=== PATIENT | male | born 1985 | race Caucasian/White ===

== ENCOUNTER 2020-10-11 00:35 | Inpatient (IN) | payer OTHER ==
[~2020-10-11] VITALS: Ht 190.5 cm; Wt 135.2 kg
[2020-10-11 01:10] LABS: BASOPHILS % (AUTO) 0.1 % (0.0-5.0); LYMPHOCYTES % (AUTO) 3.1 % (21.0-51.0); MEAN CORPUSCULAR HEMOGLOBIN 30.3 pg (27.0-33.0); MEAN CORPUSCULAR HGB CONC 33.6 g/dL (32.0-36.0); MEAN CORPUSCULAR VOLUME 90.2 fL (79-99); MONOCYTES % (AUTO) 5.9 % (3.0-13.0); NEUTROPHILS % (AUTO) 90.4 % (40.0-77.0); PLATELET COUNT (AUTO) 174 K/uL (130-400); RED BLOOD CELL COUNT(AUTO) 2.44 MIL/uL (4.50-6.20); RED CELL DISTRIBUTION WIDTH 11.9 % (11.0-15.5); WHITE BLOOD COUNT (AUTO) 18.7 K/uL (4.8-10.8)
[2020-10-11 01:34] LABS: BILIRUBIN,TOTAL 0.8 mg/dL (0.2-1.0); CREATININE 7.5 mg/dL (0.5-1.5); POTASSIUM 4.7 mmol/L (3.5-5.1); TOTAL PROTEIN, SERUM 6.6 g/dL (6.0-8.3)
[2020-10-11] MEDS ORDERED: AZITHROMYCIN 500MG+NS 250ML 250 ML IV SCH (04:00)
[2020-10-11] MEDS ORDERED: CEFTRIAXONE SODIUM 1 GM IVP SCH (04:00)
[2020-10-11] MEDS ORDERED: ACETAMINOPHEN 325 MG TAB PO PRN ×2 (04:00)
[2020-10-11] MEDS ORDERED: ONDANSETRON HCL 4 MG/2 ML VIAL IV PRN (04:00)
[2020-10-11] MEDS ORDERED: AZITHROMYCIN 500MG+NS 250ML 250 ML IV ONE (04:55)
[2020-10-11] MEDS ORDERED: CEFTRIAXONE SODIUM 1 GM ONE ×2 (04:55→19:00)
[2020-10-11] MEDS ORDERED: GLUCAGON 1MG KIT 1 MG ML IM PRN (05:15)
[2020-10-11] MEDS ORDERED: DEXTROSE 50%-WATER 50 ML DISP.SYRIN IV PRN (05:15)
[2020-10-11] MEDS ORDERED: INSULIN HUMULIN R 100 UNIT/ML 3ML SQ SCH (06:00)
[2020-10-11] MEDS ORDERED: FAMOTIDINE/PF 20 MG/2 ML VIAL IV SCH (09:00)
[2020-10-11 09:42] LABS: INR 1.63 (0.85-1.15); PROTHROMBIN TIME 16.7 SEC (9.6-11.6)
[2020-10-11] MEDS ORDERED: ALBUTEROL INHALER 90MCG/INH IH PRN (10:15)
[2020-10-11] MEDS ORDERED: FAMOTIDINE/PF 20 MG/2 ML VIAL IV ONE (10:26)
[2020-10-11] MEDS ORDERED: HEPARIN SODIUM 5000UNIT/ML 1ML VIAL SQ SCH (11:15)
[2020-10-11] MEDS ORDERED: HEPARIN SODIUM 5000UNIT/ML 1ML VIAL ONE (12:13)
[2020-10-11] MEDS ORDERED: FUROSEMIDE 10 MG/ML 4ML VIAL ONE (13:27)
[2020-10-11 14:05] LABS: APPEARANCE,URINE Turbid (CLEAR); BILIRUBIN,URINE Negative (NEGATIVE); COLOR,URINE Yellow (YELLOW); GLUCOSE, URINE (UA) 250 mg/dL (NEGATIVE); KETONES,URINE Negative (NEGATIVE); LEUKOCYTE ESTERASE ,URINE Negative (NEGATIVE); NITRATE,URINE Negative (NEGATIVE); OCCULT BLOOD,URINE Moderate (NEGATIVE); PROTEIN,URINE 300 mg/dL (NEGATIVE); UROBILINOGEN,URINE 0.2 mg/dL (0.2-1.0)
[2020-10-11 14:29] LABS: ABG BASE EXCESS -13.5 mmol/L (-2.0-3.0); ABG HCO3 10.6 mmol/L (21.0-28.0); ABG PCO2 22 mmHg (35-48)
[2020-10-11 14:32] LABS: BACTERIA,URINE Few /HPF (None Seen); SQUAMOUS EPITHELIAL CELL,UR Few /HPF (0-2); WBC,URINE 0-1 /HPF (0-1)
[2020-10-11 14:33] LABS: AMORPHOUS SEDIMENT,UR Few /LPF (None Seen)
[2020-10-11] MEDS ORDERED: SODIUM BICARB 50MEQ 50ML VIAL 100 ML ONE (15:44)
[2020-10-11] MEDS ORDERED: LIDOCAINE HCL 1% MDV 50ML VIAL ONE (20:07)
[2020-10-11 20:23] LABS: ALBUMIN 1.9 g/dL (3.5-5.0); BILIRUBIN,TOTAL 0.5 mg/dL (0.2-1.0); POTASSIUM 4.3 mmol/L (3.5-5.1); TOTAL PROTEIN, SERUM 6.3 g/dL (6.0-8.3)
[2020-10-11 20:27] LABS: CREATININE 8.1 mg/dL (0.5-1.5)
[2020-10-11 23:23] LABS: ABG BASE EXCESS -14.4 mmol/L (-2.0-3.0); ABG HCO3 17.4 mmol/L (21.0-28.0); ABG OXYGEN SATURATION 62.8 % (95.0-99.0); ABG PCO2 91 mmHg (35-48)
[2020-10-11] MEDS ORDERED: EPINEPHRINE 0.1 MG/ML 10 ML SYG ONE (23:30)
== END 2020-10-11 23:30 | disposition expired | DRG 193 ==
LOC: EDH 00:35 → EDHIP 00:36
PROVIDERS: ADMIT Internal Medicine; ATTEND Internal Medicine
PROC: 02HV33Z Insertion of Infusion Device into Superior Vena Cava, Percutaneous Approach (ICD-10-PCS; principal; 2020-10-11)
PROC: B5181ZA Fluoroscopy of Superior Vena Cava using Low Osmolar Contrast, Guidance (ICD-10-PCS; 2020-10-11)
PROC: B548ZZA Ultrasonography of Superior Vena Cava, Guidance (ICD-10-PCS; 2020-10-11)
PROC: 5A12012 Performance of Cardiac Output, Single, Manual (ICD-10-PCS; 2020-10-11)
PROC: 5A09357 Assistance with Respiratory Ventilation, Less than 24 Consecutive Hours, Continuous Positive Airway Pressure (ICD-10-PCS; 2020-10-11)
PROC: 0BH17EZ Insertion of Endotracheal Airway into Trachea, Via Natural or Artificial Opening (ICD-10-PCS; 2020-10-11)
DX: J18.9 Pneumonia, unspecified organism (principal); J96.91 Respiratory failure, unspecified with hypoxia; E46 Unspecified protein-calorie malnutrition; E87.1 Hypo-osmolality and hyponatremia; L97.429 Non-pressure chronic ulcer of left heel and midfoot with unspecified severity; N17.9 Acute kidney failure, unspecified; D64.9 Anemia, unspecified; E11.22 Type 2 diabetes mellitus with diabetic chronic kidney disease; E11.319 Type 2 diabetes mellitus with unspecified diabetic retinopathy without macular edema; E11.42 Type 2 diabetes mellitus with diabetic polyneuropathy; E11.621 Type 2 diabetes mellitus with foot ulcer; E66.01 Morbid (severe) obesity due to excess calories; I12.9 Hypertensive chronic kidney disease with stage 1 through stage 4 chronic kidney disease, or unspecified chronic kidney disease; I46.9 Cardiac arrest, cause unspecified; L97.519 Non-pressure chronic ulcer of other part of right foot with unspecified severity; N18.9 Chronic kidney disease, unspecified; Z20.828 Contact with and (suspected) exposure to other viral communicable diseases; Z68.37 Body mass index [BMI] 37.0-37.9, adult
CPT/HCPCS: 31500; 36415; 36556; 36600; 71045; 73630; 76770; 77001; 80053; 81001; 82435; 82803; 82947; 82948; 83605; 84132; 84295; 84484; 85018; 85025; 85378; 85610; 85730; 86701; 86704; 87040; 87070; 87076; 87340; 87390; 87426; 87520; 92950; 93005; 93970; 94660; C1752; G0378; J0171; J0456; J0696; J1644; J1940; J3490; U0003